=== PATIENT | male | born 1960 | race Caucasian/White ===

== ENCOUNTER → 2017-01-27 | Outpatient (CLI) | payer OTHER ==
[~2017-01-27] VITALS: Ht 182.9 cm; Wt 100.2 kg
[~2017-01-27] MED LIST: AMOXICILLIN PO; AMOXICILLIN500 MG PO; AZATHIOPRINE50 MG PO; BAYER BACK & B1 EACH PO; CENTRUM SILVER1 EAC3 PO; CHANTIX1 EACH PO; CHANTIX1 MG PO; DITROPAN XL10 MG PO; DOLOPHINE HCL5 MG PO; DURAGESIC25 MCG TD; ENDOCET 5-3251 EAC1 PO; ENDOCET 5-3251 EACH PO; ENDOCET 7.5-321 EACH PO; GABAPENTIN600 MG PO; IBUPROFEN800 MG PO; IMURAN50 MG PO; INDOCIN25 MG PO; LEVAQUIN750 MG PO; LIDODERM 5% P1 PATCH PO; LIDODERM 5% P1 PATCH TD; LISINOPRIL10 MG PO; LYRICA150 MG PO; LYRICA50 MG PO; METHADONE5 MG PO; MONTELUKAST SOD10 MG PO; NEURONTIN300 MG PO; NEURONTIN400 MG PO; NYSTATIN100000 UN1 PO; OMEPRAZOLE40 M1 PO; OXYBUTYNIN CHLO10 MG PO; PENTASA500 MG PO; PERCOCET 5/31 TABLET PO; PERCOCET 7.51 TABLET PO; PREDNISONE10 MG PO; PRILOSEC40 MG PO; PROVENTIL,2.5 MG/3 M IH; REGLAN10 MG PO; SINGULAIR10 MG PO; VALIUM5 MG PO; VENTOLIN HFA18 GM IH; ZANAFLEX2 M1 PO; ZANTAC150 MG PO; ZESTRIL10 MG PO; ZOFRAN ODT8 MG PO; ZOLOFT100 MG PO; ZOLOFT50 MG PO
[2017-01-27 12:40] LABS: CHLORIDE 103 mEq/L (99-109); SODIUM 137 mEq/L (136-147)
[2017-01-27 12:42] LABS: GLUCOSE 88 mg/dL (70-99)
[2017-01-27 12:43] LABS: ANION GAP 11 MEQ/L (2-14)
[2017-01-27 12:46] LABS: GFR ESTIMATE (CALCULATED) > 59 mL/min/
[2017-01-27 12:47] LABS: UREA NITROGEN (BUN) 10 mg/dL (9-23)
== END | disposition home or self-care (01) ==
LOC: AMB 11:39
PROVIDERS: Anesthesiology
PROC: 0DBK8ZX Excision of Ascending Colon, Via Natural or Artificial Opening Endoscopic, Diagnostic (ICD-10-PCS; principal; 2017-01-27)
DX: K50.918 Crohn's disease, unspecified, with other complication (principal); F17.200 Nicotine dependence, unspecified, uncomplicated; R10.30 Lower abdominal pain, unspecified; Z79.899 Other long term (current) drug therapy; Z88.8 Allergy status to other drugs, medicaments and biological substances
CPT/HCPCS: 80048; 88305; 93005; J2250; J2405

== ENCOUNTER 2017-03-12 11:57 | Emergency (ER) | payer OTHER ==
[~2017-03-12] VITALS: Ht 182.9 cm; Wt 102.0 kg
[2017-03-12 14:21] LABS: BASOPHIL COUNT 0.1 K/uL (0-0.1); EOSINOPHIL (%) 1.8 % (0-5); EOSINOPHIL COUNT 0.2 K/uL (0-0.3); HEMATOCRIT 44.1 % (38.0-50.0); IMMATURE GRANULOCYTE (%) 0.6 % (0.0-0.7); IMMATURE GRANULOCYTE COUNT 0.1 K/uL; INSTRUMENT ABS NEUTROPHIL CT 7.4 K/uL; LYMPHOCYTE COUNT 3.8 K/uL (1.0-2.8); MCH 30.4 PG (29.0-34.0); MCHC 33.3 G/DL (30.0-36.0); MCV 91.3 FL (86-99); MEAN PLAT.VOLUME 10.7 uM^3 (9.0-12.4); MONOCYTE (%) 8.6 % (3-12); MONOCYTE COUNT 1.1 K/uL (0-0.8); NEUTROPHIL (%) 58.3 % (45-76); NEUTROPHIL COUNT 7.4 K/uL (1.8-6.4); PLATELET COUNT 281 K/uL (156-360); RBC DIS.WIDTH-CV 14.4 % (11.8-14.6); RBC DIS.WIDTH-SD 48.1 % (39-53); RED BLOOD COUNT 4.83 M/uL (4.00-5.50)
[2017-03-12 14:26] LABS: WHITE BLOOD COUNT 12.7 K/uL (4.1-10.2)
[2017-03-12 14:37] LABS: CHLORIDE 106 mEq/L (99-109); POTASSIUM 3.6 mEq/L (3.7-5.4); SODIUM 139 mEq/L (136-147)
[2017-03-12 14:39] LABS: GLUCOSE 99 mg/dL (70-99)
[2017-03-12 14:40] LABS: ANION GAP 8 MEQ/L (2-14)
[2017-03-12 14:43] LABS: GFR ESTIMATE (CALCULATED) > 59 mL/min/
[2017-03-12 14:44] LABS: UREA NITROGEN (BUN) 8 mg/dL (9-23)
[2017-03-12] MEDS ORDERED: FLEXERIL10 MG PO (17:39)
[2017-03-12 17:56] VITALS: BP 130/64
== END 2017-03-12 17:58 | disposition home or self-care (01) ==
LOC: EME 11:57
PROVIDERS: Emergency Medicine
DX: M79.605 Pain in left leg (principal); J44.9 Chronic obstructive pulmonary disease, unspecified; J45.909 Unspecified asthma, uncomplicated; G89.29 Other chronic pain; M54.5 Low back pain; E78.5 Hyperlipidemia, unspecified; K21.9 Gastro-esophageal reflux disease without esophagitis; F17.200 Nicotine dependence, unspecified, uncomplicated
CPT/HCPCS: 71010; 80048; 85025; 93971; 99281; 99285

== ENCOUNTER 2017-03-21 10:13 | Day surgery (SDC) | payer OTHER ==
[~2017-03-21] VITALS: Ht 182.9 cm; Wt 102.5 kg
[~2017-03-21 10:13] MED LIST changes: +FLEXERIL10 MG PO
== END 2017-03-21 12:56 | disposition home or self-care (01) ==
LOC: PAIN 10:13 → SDC 11:00 → PAIN 12:56
DX: M51.16 Intervertebral disc disorders with radiculopathy, lumbar region (principal); M51.06 Intervertebral disc disorders with myelopathy, lumbar region; I10 Essential (primary) hypertension; M47.22 Other spondylosis with radiculopathy, cervical region; G62.9 Polyneuropathy, unspecified; M96.1 Postlaminectomy syndrome, not elsewhere classified; J45.909 Unspecified asthma, uncomplicated; K21.9 Gastro-esophageal reflux disease without esophagitis; E66.9 Obesity, unspecified; Z68.30 Body mass index [BMI] 30.0-30.9, adult; F17.210 Nicotine dependence, cigarettes, uncomplicated
CPT/HCPCS: J1100; J2250; J3010

== ENCOUNTER 2017-05-28 12:54 | Observation (INO) | payer OTHER ==
[~2017-05-28] VITALS: Ht 182.9 cm; Wt 98.1 kg
[2017-05-28 13:48] LABS: EOSINOPHIL (%) 0 % (0-5); HEMATOCRIT 36.4 % (38.0-50.0); IMMATURE GRANULOCYTE (%) 1.8 % (0.0-0.7); IMMATURE GRANULOCYTE COUNT 0.1 K/uL; INSTRUMENT ABS NEUTROPHIL CT 5.2 K/uL; LYMPHOCYTE COUNT 0.5 K/uL (1.0-2.8); MCH 30.3 PG (29.0-34.0); MCHC 34.3 G/DL (30.0-36.0); MCV 88.3 FL (86-99); MEAN PLAT.VOLUME 11.5 uM^3 (9.0-12.4); MONOCYTE (%) 4.5 % (3-12); MONOCYTE COUNT 0.3 K/uL (0-0.8); NEUTROPHIL (%) 84.7 % (45-76); NEUTROPHIL COUNT 5.2 K/uL (1.8-6.4); PLATELET COUNT 121 K/uL (156-360); RBC DIS.WIDTH-CV 14.2 % (11.8-14.6); RED BLOOD COUNT 4.12 M/uL (4.00-5.50); WHITE BLOOD COUNT 6.2 K/uL (4.1-10.2)
[2017-05-28 13:54] LABS: CREATININE 1.6 mg/dL (0.6-1.3)
[2017-05-28 14:01] LABS: INTER. NORMALIZED RATIO 1.3; PROTHROMBIN TIME 14.8 SEC (10.2-12.9)
[2017-05-28 14:02] LABS: CHLORIDE 99 mEq/L (99-109); SODIUM 132 mEq/L (136-147)
[2017-05-28 14:04] LABS: PTT 31.9 SEC (25-37)
[2017-05-28 14:05] LABS: GLUCOSE 95 mg/dL (70-99)
[2017-05-28 14:06] LABS: ANION GAP 11 MEQ/L (2-14)
[2017-05-28 14:07] LABS: TOTAL BILIRUBIN 0.8 mg/dL (0.0-1.0)
[2017-05-28 14:08] LABS: ALKALINE PHOSPHATASE 50 IU/L (3-129); GFR ESTIMATE (CALCULATED) 48 mL/min/
[2017-05-28 14:09] LABS: UREA NITROGEN (BUN) 21 mg/dL (9-23)
[2017-05-28 14:11] LABS: TROP-I INTERPRETATION NEGATIVE; TROPONIN-I < 0.01 ng/mL (0.0-0.30)
[2017-05-28 14:45] LABS: ADD MIUA? YES; BILIRUBIN NEGATIVE; BLOOD MODERATE; COLOR YELLOW ((YELLOW)); GLUCOSE (STRIP) NEGATIVE; KETONES NEGATIVE; LEUKOCYTES NEGATIVE; NITRITE NEGATIVE; PROTEIN (STRIP) 30; SPECIFIC GRAVITY 1.015 (1.000-1.030); UROBILINOGEN 0.2 MG/DL (0.2-1.0)
[2017-05-28 14:52] LABS: BACTERIA RARE /HPF; EPITHELIAL CELLS NONE SEEN /HPF; MUCUS NONE SEEN /LPF; RED BLOOD CELLS 0-5 /HPF (0-5); UCUL ADDED? NO; WHITE BLOOD CELLS 0-5 /HPF (0-5)
[2017-05-28] MEDS ORDERED: FLEXERIL10 MG PO (16:30)
[2017-05-28] MEDS ORDERED: ENDOCET 5-3251 EACH PO (16:40)
[2017-05-28 16:44] LABS: MAGNESIUM 1.3 mg/dL (1.3-2.7)
[2017-05-28 16:52] LABS: HEMATOCRIT 35.6 % (38.0-50.0); MCV 88.1 FL (86-99)
[2017-05-28 19:51] VITALS: BP 115/62
[2017-05-29 01:00] VITALS: BP 105/66
[2017-05-29 04:45] VITALS: BP 94/65
[2017-05-29 05:52] LABS: HEMATOCRIT 35.1 % (38.0-50.0); MCHC 34.8 G/DL (30.0-36.0); MCV 89.3 FL (86-99); PLATELET COUNT 92 K/uL (156-360); RBC DIS.WIDTH-CV 14.6 % (11.8-14.6); RBC DIS.WIDTH-SD 47.2 % (39-53); RED BLOOD COUNT 3.93 M/uL (4.00-5.50); WHITE BLOOD COUNT 4.1 K/uL (4.1-10.2)
[2017-05-29 06:30] LABS: ABS NEUTROPHIL COUNT 3.1; BAND NEUTROPHILS 10.4 % (0-8.0); BASOPHILS 0.9 %; EOSINOPHIL ABS CT 0; INSTRUMENT ABS NEUTROPHIL CT 2.4 K/uL; LYMPHOCYTES 11.3 % (15.0-45.0); METAMYELOCYTES 0.9 %; MICROCYTOSIS 1+; PLAT.SUFFICIENCY DECREASED; POLYCHROMASIA 1+; SEG.NEUTROPHILS 64.4 % (46.0-76.0); SPHEROCYTES 1+; TOXIC GRANULATION 1+
[2017-05-29 07:23] LABS: ALKALINE PHOSPHATASE 44 IU/L (3-129); ANION GAP 6 MEQ/L (2-14); CHLORIDE 106 MEQ/L (99-109); DIRECT BILIRUBIN 0.2 mg/dL (0.0-0.3); GFR ESTIMATE (CALCULATED) > 59 mL/min/; GLUCOSE 88 mg/dL (70-99); POTASSIUM 3.1 MEQ/L (3.7-5.4); SAMPLE HEMOLYSIS CHECK 0; SAMPLE ICTERIC CHECK 0; SAMPLE LIPEMIA CHECK 0; SODIUM 137 MEQ/L (136-147); TOTAL BILIRUBIN 0.6 MG/DL (0.0-1.0); UREA NITROGEN (BUN) 16 mg/dL (9-23)
[2017-05-29 07:31] VITALS: BP 114/69
[2017-05-29 08:37] LABS: TROP-I INTERPRETATION NEGATIVE; TROPONIN-I 0.02 ng/mL (0.0-0.30)
[2017-05-29 13:50] VITALS: BP 110/52
== END 2017-05-29 13:55 | disposition home or self-care (01) ==
LOC: EME 12:54 → EDOF 16:41 → 4EAST 16:41 → ENRESERV 16:43 → 4EAST 19:11
PROVIDERS: Emergency Medicine; Internal Medicine
DX: R55 Syncope and collapse (principal); R10.84 Generalized abdominal pain; K50.90 Crohn's disease, unspecified, without complications; J44.9 Chronic obstructive pulmonary disease, unspecified; Z99.81 Dependence on supplemental oxygen; F17.200 Nicotine dependence, unspecified, uncomplicated; N17.9 Acute kidney failure, unspecified; I95.9 Hypotension, unspecified; E86.0 Dehydration; E87.6 Hypokalemia; E87.1 Hypo-osmolality and hyponatremia; R07.9 Chest pain, unspecified; R51 Headache; G89.29 Other chronic pain; M54.5 Low back pain; Z79.891 Long term (current) use of opiate analgesic; G47.33 Obstructive sleep apnea (adult) (pediatric); I10 Essential (primary) hypertension; Z91.041 Radiographic dye allergy status; Z88.8 Allergy status to other drugs, medicaments and biological substances; Z82.49 Family history of ischemic heart disease and other diseases of the circulatory system; Z83.3 Family history of diabetes mellitus
CPT/HCPCS: 70450; 71010; 71275; 74177; 80047; 80048; 80053; 80076; 81003; 83605; 83735; 84484; 85014; 85018; 85025; 85379; 85610; 85730; 86900; 86901; 87040; 93005; 93970; 94640; 94640 76; 94799; 99202; 99281; 99284; G0378; J1200; J1650; J2310; J7030

== ENCOUNTER 2017-08-24 11:36 | Day surgery (SDC) | payer OTHER ==
[~2017-08-24] VITALS: Ht 182.9 cm; Wt 100.7 kg
[~2017-08-24 11:36] MED LIST changes: +TRIDERM28.4 GM TP
== END 2017-08-24 14:20 | disposition home or self-care (01) ==
LOC: PAIN 11:36 → SDC 13:30 → PAIN 14:20
DX: M47.26 Other spondylosis with radiculopathy, lumbar region (principal); M51.06 Intervertebral disc disorders with myelopathy, lumbar region; G89.29 Other chronic pain; M96.1 Postlaminectomy syndrome, not elsewhere classified; J44.9 Chronic obstructive pulmonary disease, unspecified; E78.5 Hyperlipidemia, unspecified; E66.3 Overweight; Z68.30 Body mass index [BMI] 30.0-30.9, adult; K21.9 Gastro-esophageal reflux disease without esophagitis; M41.9 Scoliosis, unspecified; M54.12 Radiculopathy, cervical region; I10 Essential (primary) hypertension; M48.061 Spinal stenosis, lumbar region without neurogenic claudication; F41.8 Other specified anxiety disorders; Z79.891 Long term (current) use of opiate analgesic; F17.210 Nicotine dependence, cigarettes, uncomplicated
CPT/HCPCS: J1030; J2250; J3010; S0020

== ENCOUNTER 2017-09-28 22:41 | Emergency (ER) | payer OTHER ==
[~2017-09-28] VITALS: Ht 182.9 cm; Wt 100.7 kg
[2017-09-29] MEDS ORDERED: NAPROXEN500 MG PO (00:04)
[2017-09-29 00:11] VITALS: BP 137/91
== END 2017-09-29 00:12 | disposition home or self-care (01) ==
LOC: RME 22:41 → EME 22:41 → RME 09-29 00:12
PROC: 2W3KX1Z Immobilization of Left Finger using Splint (ICD-10-PCS; principal; 2017-09-28)
DX: S62.637A Displaced fracture of distal phalanx of left little finger, initial encounter for closed fracture (principal); W23.0XXA Caught, crushed, jammed, or pinched between moving objects, initial encounter; Z88.5 Allergy status to narcotic agent
CPT/HCPCS: 73130; 99281; 99284

== ENCOUNTER 2017-11-09 09:26 | Day surgery (SDC) | payer OTHER ==
[~2017-11-09] VITALS: Ht 182.9 cm; Wt 102.1 kg
[~2017-11-09 09:26] MED LIST changes: -DITROPAN XL10 MG PO; +DITROPAN XL15 MG PO; +NAPROXEN500 MG PO; +ZANAFLEX4 MG PO
== END 2017-11-09 12:20 | disposition home or self-care (01) ==
LOC: PAIN 09:26 → CATH 10:30 → SDC 10:30 → PAIN 11:30
DX: M47.26 Other spondylosis with radiculopathy, lumbar region (principal); M51.16 Intervertebral disc disorders with radiculopathy, lumbar region; M51.06 Intervertebral disc disorders with myelopathy, lumbar region; G89.29 Other chronic pain; M48.061 Spinal stenosis, lumbar region without neurogenic claudication; M79.7 Fibromyalgia; M96.1 Postlaminectomy syndrome, not elsewhere classified; G62.9 Polyneuropathy, unspecified; M50.10 Cervical disc disorder with radiculopathy, unspecified cervical region; I10 Essential (primary) hypertension; J44.9 Chronic obstructive pulmonary disease, unspecified; K21.9 Gastro-esophageal reflux disease without esophagitis; R94.31 Abnormal electrocardiogram [ECG] [EKG]; E78.5 Hyperlipidemia, unspecified; G47.33 Obstructive sleep apnea (adult) (pediatric); F17.200 Nicotine dependence, unspecified, uncomplicated; Z79.891 Long term (current) use of opiate analgesic
CPT/HCPCS: J1100; J2250; J3010

== ENCOUNTER 2017-12-07 09:05 | Day surgery (SDC) | payer OTHER ==
[~2017-12-07] VITALS: Ht 182.9 cm; Wt 104.7 kg
== END 2017-12-07 10:34 | disposition home or self-care (01) ==
LOC: PAIN 09:05 → SDC 09:45 → PAIN 09:45
DX: M47.16 Other spondylosis with myelopathy, lumbar region (principal); M51.06 Intervertebral disc disorders with myelopathy, lumbar region; M48.061 Spinal stenosis, lumbar region without neurogenic claudication; J44.9 Chronic obstructive pulmonary disease, unspecified; E78.5 Hyperlipidemia, unspecified; I10 Essential (primary) hypertension; K21.9 Gastro-esophageal reflux disease without esophagitis; K50.90 Crohn's disease, unspecified, without complications; M79.1 Myalgia; M41.9 Scoliosis, unspecified; F41.8 Other specified anxiety disorders; E66.9 Obesity, unspecified; Z68.31 Body mass index [BMI] 31.0-31.9, adult; F17.200 Nicotine dependence, unspecified, uncomplicated; Z79.82 Long term (current) use of aspirin
CPT/HCPCS: J1100; J2250; J3010

== ENCOUNTER 2018-03-02 17:19 | Observation (INO) | payer OTHER ==
[~2018-03-02] VITALS: Ht 182.9 cm; Wt 101.6 kg
[2018-03-02 17:57] LABS: HEMATOCRIT 46.9 % (38.0-50.0); HEMOGLOBIN 16.6 G/DL (12.5-16.6); MCHC 35.4 G/DL (30.0-36.0); MCV 87.5 FL (86-99); RBC DIS.WIDTH-CV 13.7 % (11.8-14.6); RBC DIS.WIDTH-SD 43.7 % (39-53); RED BLOOD COUNT 5.36 M/uL (4.00-5.50); WHITE BLOOD COUNT 9.4 K/uL (4.1-10.2)
[2018-03-02 18:05] LABS: ALBUMIN 3.9 g/dL (3.2-4.8); CHLORIDE 96 mEq/L (99-109); POTASSIUM 3.1 mEq/L (3.7-5.4); SODIUM 134 mEq/L (136-147)
[2018-03-02 18:08] LABS: GLUCOSE 106 mg/dL (70-99); TOTAL PROTEIN 7.3 g/dL (6.4-8.3)
[2018-03-02 18:09] LABS: TOTAL BILIRUBIN 0.8 mg/dL (0.0-1.0)
[2018-03-02 18:11] LABS: ALKALINE PHOSPHATASE 71 IU/L (3-129); CREATININE 0.9 mg/dL (0.6-1.3); GFR ESTIMATE (CALCULATED) > 59 mL/min/ (58.99-99999)
[2018-03-02 18:12] LABS: UREA NITROGEN (BUN) 11 mg/dL (9-23)
[2018-03-02 18:13] LABS: AST (GOT) 39 IU/L (2-34)
[2018-03-02 18:14] LABS: ALT (GPT) 32 IU/L (3-49)
[2018-03-02 18:21] LABS: APPEARANCE CLEAR ((CLEAR)); BILIRUBIN NEGATIVE; BLOOD LARGE; COLOR AMBER ((YELLOW)); GLUCOSE (STRIP) NEGATIVE; KETONES 5; LEUKOCYTES NEGATIVE; NITRITE NEGATIVE; PROTEIN (STRIP) 100; SPECIFIC GRAVITY 1.024 (1.000-1.030)
[2018-03-02 18:29] LABS: BACTERIA RARE /HPF; CALCIUM OXALATE CRYSTALS 2+ /HPF; EPITHELIAL CELLS RARE /HPF; MUCUS TRACE /LPF; RED BLOOD CELLS TNTC /HPF (0-5); UCUL ADDED? YES; WHITE BLOOD CELLS 0-5 /HPF (0-5)
[2018-03-02 19:30] LABS: PLATELET COUNT 182 K/uL (156-360)
[2018-03-02 19:30] LABS: TROP-I INTERPRETATION NEGATIVE; TROPONIN-I < 0.01 ng/mL (0.0-0.30)
[2018-03-02] MEDS ORDERED: NAPROSYN500 MG PO (21:32)
[2018-03-02] MEDS ORDERED: MEDROL32 MG PO (21:32)
[2018-03-02 22:55] VITALS: BP 131/77
[2018-03-02 22:58] LABS: ACETAMINOPHEN (TYLENOL) < 10 mcg/mL (10-30)
[2018-03-03 01:00] LABS: TROP-I INTERPRETATION NEGATIVE; TROPONIN-I < 0.01 ng/mL (0.0-0.30)
[2018-03-03 04:28] VITALS: BP 126/72
[2018-03-03 05:34] LABS: HEMATOCRIT 46.4 % (38.0-50.0); HEMOGLOBIN 16.1 G/DL (12.5-16.6); MCH 30.7 PG (29.0-34.0); MCHC 34.7 G/DL (30.0-36.0); MCV 88.5 FL (86-99); PLATELET COUNT 170 K/uL (156-360); RBC DIS.WIDTH-CV 13.6 % (11.8-14.6); RBC DIS.WIDTH-SD 44.3 % (39-53); RED BLOOD COUNT 5.24 M/uL (4.00-5.50); WHITE BLOOD COUNT 5.9 K/uL (4.1-10.2)
[2018-03-03 05:44] LABS: TROP-I INTERPRETATION NEGATIVE; TROPONIN-I < 0.01 ng/mL (0.0-0.30)
[2018-03-03 05:55] LABS: ALBUMIN 3.7 G/DL (3.2-4.8); ALKALINE PHOSPHATASE 66 IU/L (3-129); ALT (GPT) 28 IU/L (3-49); CHLORIDE 100 MEQ/L (99-109); CREATININE 0.9 MG/DL (0.6-1.3); GFR ESTIMATE (CALCULATED) > 59 mL/min/ (58.99-99999); GLUCOSE 145 mg/dL (70-99); SODIUM 137 MEQ/L (136-147); TOTAL PROTEIN 6.7 G/DL (6.4-8.3); UREA NITROGEN (BUN) 16 mg/dL (9-23)
[2018-03-03 06:22] LABS: AST (GOT) 37 IU/L (2-34); POTASSIUM 4.6 MEQ/L (3.7-5.4); TOTAL BILIRUBIN 0.8 MG/DL (0.0-1.0)
[2018-03-03 07:45] VITALS: BP 105/72
[2018-03-03 09:21] LABS: THYROTROPIN (TSH) 0.64 MIU/L (0.4-5.5)
[2018-03-03 09:29] LABS: LACTATE DEHYDROGENASE 248 IU/L (20-246)
[2018-03-03 11:06] VITALS: BP 109/68
[2018-03-03] MEDS ORDERED: AZITHROMYCIN250 MG PO (14:45)
== END 2018-03-03 16:18 | disposition home or self-care (01) ==
LOC: EME 17:19 → EDOF 21:42 → ENRESERV 22:05 → 4SOUTH 23:05
PROVIDERS: Hospitalist; Nurse Practitioner Family; Physician Assistant
DX: R61 Generalized hyperhidrosis (principal); J40 Bronchitis, not specified as acute or chronic; R31.29 Other microscopic hematuria; K50.90 Crohn's disease, unspecified, without complications; G47.33 Obstructive sleep apnea (adult) (pediatric); G89.29 Other chronic pain; I10 Essential (primary) hypertension; F17.200 Nicotine dependence, unspecified, uncomplicated; Z79.899 Other long term (current) drug therapy; Z82.49 Family history of ischemic heart disease and other diseases of the circulatory system; Z83.3 Family history of diabetes mellitus
CPT/HCPCS: 71046; 80053; 81003; 82948; 83605; 83615; 84443; 84484; 85027; 87040; 87086; 87502; 93005; 99202; 99281; 99285; G0378; G0480; J1644; J7030; J7512

== ENCOUNTER 2018-04-24 08:35 | Day surgery (SDC) | payer OTHER ==
[~2018-04-24] VITALS: Ht 182.9 cm; Wt 103.0 kg
[~2018-04-24 08:35] MED LIST changes: +AZITHROMYCIN250 MG PO; +MEDROL32 MG PO; +NAPROSYN500 MG PO
== END 2018-04-24 10:15 | disposition home or self-care (01) ==
LOC: PAIN 08:35 → SDC 09:15 → PAIN 10:15
DX: M47.812 Spondylosis without myelopathy or radiculopathy, cervical region (principal); M54.12 Radiculopathy, cervical region; M79.1 Myalgia; M48.02 Spinal stenosis, cervical region; F41.8 Other specified anxiety disorders; K21.9 Gastro-esophageal reflux disease without esophagitis; E78.5 Hyperlipidemia, unspecified; I10 Essential (primary) hypertension; G47.30 Sleep apnea, unspecified; J44.9 Chronic obstructive pulmonary disease, unspecified; F17.210 Nicotine dependence, cigarettes, uncomplicated; Z79.891 Long term (current) use of opiate analgesic; Z79.82 Long term (current) use of aspirin
CPT/HCPCS: J1030; J2250; S0020

== ENCOUNTER 2018-05-01 09:35 | Day surgery (SDC) | payer OTHER ==
[~2018-05-01] VITALS: Ht 182.9 cm; Wt 103.0 kg
== END 2018-05-01 11:09 | disposition home or self-care (01) ==
LOC: PAIN 09:35 → SDC 10:00 → PAIN 10:00
PROC: BR141ZZ Fluoroscopy of Cervical Facet Joint(s) using Low Osmolar Contrast (ICD-10-PCS; principal; 2018-05-01)
PROC: 3E0T33Z Introduction of Anti-inflammatory into Peripheral Nerves and Plexi, Percutaneous Approach (ICD-10-PCS; principal; 2018-05-01)
PROC: 3E0T3BZ Introduction of Anesthetic Agent into Peripheral Nerves and Plexi, Percutaneous Approach (ICD-10-PCS; principal; 2018-05-01)
DX: M47.812 Spondylosis without myelopathy or radiculopathy, cervical region (principal); M48.02 Spinal stenosis, cervical region; M51.16 Intervertebral disc disorders with radiculopathy, lumbar region; M51.06 Intervertebral disc disorders with myelopathy, lumbar region; J44.9 Chronic obstructive pulmonary disease, unspecified; E78.5 Hyperlipidemia, unspecified; K50.90 Crohn's disease, unspecified, without complications; I10 Essential (primary) hypertension; M96.1 Postlaminectomy syndrome, not elsewhere classified; E66.9 Obesity, unspecified; Z68.30 Body mass index [BMI] 30.0-30.9, adult; G47.30 Sleep apnea, unspecified; F17.200 Nicotine dependence, unspecified, uncomplicated; Z79.891 Long term (current) use of opiate analgesic; Z88.5 Allergy status to narcotic agent; Z91.041 Radiographic dye allergy status
CPT/HCPCS: J1030; J2250; S0020